=== PATIENT | female | born 1950 | race Caucasian/White ===

== ENCOUNTER 2024-07-30 19:01 | Emergency (ER) | payer MEDICARE, MEDICAID ==
[~2024-07-30] VITALS: Ht 152.4 cm; Wt 46.9 kg
[2024-07-30 19:15] VITALS: PULSE 84; RESP 20; O2SAT 98
[2024-07-30 19:22] LABS: BASOPHILS % (AUTO) 0.5 % (0.0-2.0); EOSINOPHILS % (AUTO) 0.1 % (1.0-6.0); HEMATOCRIT 28.5 % (36-46); HEMOGLOBIN 9.1 g/dL (12.0-16.0); LYMPHOCYTES # (AUTO) 4.6 K/uL (1.0-4.8); LYMPHOCYTES % (AUTO) 51.5 % (22.0-44.0); MEAN CORPUSCULAR HEMOGLOBIN 32.3 pg (26.0-34.0); MEAN CORPUSCULAR HGB CONC 31.8 G/dL (31.0-37.0); MEAN CORPUSCULAR VOLUME 102 fL (80-100); MONOCYTES # (AUTO) 0.6 K/uL (0.1-1.0); MONOCYTES % (AUTO) 7.1 % (2.0-9.0); NEUTROPHILS # (AUTO) 3.6 K/uL (1.8-7.7); NEUTROPHILS % (AUTO) 40.8 % (40.0-70.0); PLATELET COUNT (AUTO) 163 K/uL (150-450); RED BLOOD CELL COUNT(AUTO) 2.81 MIL/uL (4.00-5.20); RED CELL DISTRIBUTION WIDTH 16.4 % (11.5-14.5); WHITE BLOOD COUNT (AUTO) 8.8 K/uL (4.5-11.0)
[2024-07-30 19:28] VITALS: TEMP 94.7
[2024-07-30 19:41] LABS: ANION GAP 9 mmol/L (8-16); CALCIUM, TOTAL 8.5 mg/dL (8.8-10.5); CARBON DIOXIDE 25 mmol/L (22-29); CHLORIDE 105 mmol/L (98-107); CREATININE 7.31 mg/dL (0.60-1.30); GLOMERULAR FILTR. RATE CALC 5 mL/min (>60); GLUCOSE,RANDOM 162 mg/dL (70-110); SODIUM SERUM 139 mmol/L (136-145); TROPONIN I-HIGH SENSITIVITY 50 ng/L (<51); UREA NITROGEN, BLOOD 83 mg/dL (7-18)
[2024-07-30 19:43] LABS: LACTIC ACID 3.6 mmol/L (0.4-2.0); POTASSIUM 7.4 mmol/L (3.5-5.1)
[2024-07-30] MEDS: INSULIN REGULAR, HUMAN 100 UNITS/ML IVP ONE (20:10)
[2024-07-30] MEDS: DEXTROSE 50%-WATER 25 GM/50 ML SYRINGE IVP ONE (20:11)
[2024-07-30] MEDS: CALCIUM CHLORIDE 100 MG/ML 10 ML SYRINGE IVP ONE (20:12)
[2024-07-30] MEDS: ALBUTEROL SULFATE 2.5 MG/0.5 ML 5 ML NEB SOLUTION NEB ONE (20:50)
[2024-07-30 20:55] VITALS: PULSE 84; RESP 10; O2SAT 99
[2024-07-30 21:48] VITALS: PULSE 80; RESP 10; O2SAT 99
[2024-07-30 21:57] VITALS: BP 109/57; PULSE 112; RESP 12; O2SAT 98
== END 2024-07-30 22:07 | disposition home or self-care (01) ==
LOC: EMS 19:01 → EDUNIT# 19:01 → EMS 22:07
DX: E87.5 Hyperkalemia (principal); I50.9 Heart failure, unspecified; E11.22 Type 2 diabetes mellitus with diabetic chronic kidney disease; N18.6 End stage renal disease; Z99.2 Dependence on renal dialysis
CPT/HCPCS: 99285; 96374; 96375; 71045; 80048; 82140; 83605; 84484; 85025; 87040; 36415; 94660; 94640; 93005; J1815; J3490; 94644